=== PATIENT | male | born 1985 ===

== ENCOUNTER 2017-09-27 04:42 | Inpatient (IN) | payer OTHER ==
[2017-09-27] MEDS ORDERED: ASPIRIN PO ONE (05:26)
[2017-09-27 05:52] LABS: Basophils # (Auto) 0.1 K/mm3 (0.0-0.1); Basophils % (Auto) 2.8 % (0.0-1.8); Eosinophils # (Auto) 0.4 K/mm3 (0.0-0.4); Eosinophils % (Auto) 7.6 % (0.0-4.3); Hematocrit 43.3 % (35.5-45.6); Hemoglobin 14.3 gm/dl (11.8-15.2); Lymphocytes # (Auto) 1.4 K/mm3 (1.2-5.4); Lymphocytes % (Auto) 26.8 % (13.4-35.0); Mean Corpuscular HGB Conc 33 % (32-34); Mean Corpuscular Volume 78 fl (84-94); Monocytes # (Auto) 0.5 K/mm3 (0.0-0.8); Monocytes % (Auto) 8.7 % (0.0-7.3); Platelet Count 200 K/mm3 (140-440); Red Blood Count 5.58 M/mm3 (3.65-5.03); Red Cell Distribution Width 14.7 % (13.2-15.2)
[2017-09-27 06:05] LABS: BUN/Creatinine Ratio 10; Blood Urea Nitrogen 11 mg/dL (9-20); Calcium 9.4 mg/dL (8.4-10.2); Hemolysis Index 8
[2017-09-27 06:22] LABS: Mean Corpuscular Hemoglobin 26 pg (28-32)
[2017-09-27] MEDS ORDERED: NITRO-BID 2% TP ONE (10:50)
[2017-09-27] MEDS ORDERED: ASPIRIN ONE (10:53)
--- NOTE | 2017-09-27 10:56 | Emergency Department Report ---
HPI - General Chief Complaint: Chest Pain Time Seen by Provider: 09/27/17 10:39 - HPI HPI: Room 19 The patient is a 32-year-old male presenting with a chief complaint of chest pain and palpitations. The patient states last night he developed left-sided chest pressure associated with palpitations and shortness of breath. The patient states he did become diaphoretic during the episode but denies nausea/ vomiting. Patient denies previous episodes. The patient states he's never had a stress test or cardiac catheterization Location: Chest Duration: One hour Quality: Pressure Severity: Currently 0/10 Modifying factors: [see above] Context: [see above] Mode of transportation: [not driving] ED Past Medical Hx - Past Medical History Previous Medical History?: Yes Hx Diabetes: Yes Hx Asthma: Yes - Surgical History Past Surgical History?: No - Family History Family history: no significant - Social History Smoking Status: Current Every Day Smoker (cigars) Substance Use Type: None (denies illicit drug), Alcohol (occasional) - Medications Home Medications: Home Medications Medication Instructions Recorded Confirmed Last Taken Type Aspirin 325 mg PO DAILY 09/27/17 09/27/17 09/27/17 11:00 History metFORMIN [Glucophage] 500 mg PO BID 09/27/17 09/27/17 Unknown History ED Review of Systems ROS: Stated complaint: CHEST PAIN Other details as noted in HPI Constitutional: diaphoresis Respiratory: shortness of breath Cardiovascular: chest pain, palpitations Gastrointestinal: denies: nausea, vomiting Physical Exam - Physical Exam Vital Signs: Vital Signs 09/27/17 09/27/17 09/27/17 04:45 05:24 10:06 Temperature 98.3 F 98.3 F 98 F Pulse Rate 89 87 77 Respiratory 18 Rate Blood Pressure 134/92 134/72 Blood Pressure 127/70 [Left] O2 Sat by Pulse 97 98 Oximetry Physical Exam: GENERAL: The patient is well-developed well-nourished male sitting on stretcher not appearing to be in acute distress. [] HEENT: Normocephalic. Atraumatic. Extraocular motions are intact. Patient has moist mucous membranes. NECK: Supple. Trachea midline CHEST/LUNGS: Clear to auscultation. There is no respiratory distress noted. HEART/CARDIOVASCULAR: Regular. There is no tachycardia. There is no gallop rub or murmur. ABDOMEN: Abdomen is soft, nontender. Patient has normal bowel sounds. There is no abdominal distention. SKIN: There is no rash. There is no edema. There is no diaphoresis. NEURO: The patient is awake, alert, and oriented. The patient is cooperative. The patient has normal speech MUSCULOSKELETAL: There is no evidence of acute injury. ED Course Vital Signs 09/27/17 09/27/17 09/27/17 04:45 05:24 10:06 Temperature 98.3 F 98.3 F 98 F Pulse Rate 89 87 77 Respiratory 18 18 18 Rate Blood Pressure 134/92 134/72 Blood Pressure 127/70 [Left] O2 Sat by Pulse 97 98 Oximetry ED Medical Decision Making - Lab Data Result diagrams: 09/27/17 05:36 09/27/17 05:36 Laboratory Tests 09/27/17 09/27/17 09/27/17 05:36 05:36 08:15 WBC 5.3 RBC 5.58 H Hgb 14.3 Hct 43.3 MCV 78 L MCH 26 L MCHC 33 RDW 14.7 Plt Count 200 Lymph % (Auto) 26.8 [place] % (Auto) 8.7 H Eos % (Auto) 7.6 H Baso % (Auto) 2.8 H Lymph # 1.4 [place] # 0.5 Eos # 0.4 Baso # 0.1 Seg Neutrophils % 54.1 Seg Neutrophils # 2.9 Sodium 139 Potassium 4.2 Chloride 99.3 Carbon Dioxide 28 Anion Gap 16 BUN 11 Creatinine 1.1 Estimated GFR > 60 BUN/Creatinine Ratio 10 Glucose 110 H Calcium 9.4 Troponin T < 0.010 < 0.010 - EKG Data -: EKG Interpreted by Me EKG shows normal: sinus rhythm Rate: normal - EKG Data When compared to previous EKG there are: previous EKG unavailable Interpretation: nonspecific ST-T wave romina (jolley ST elevation) - Radiology Data Radiology results: image reviewed (chest x-ray) interpreted by me: Chest x-ray-no focal infiltrates, no pneumothorax - Differential Diagnosis ACS, pericarditis, dysrhythmia Critical care attestation.: If time is entered above; I have spent that time in minutes in the direct care of this critically ill patient, excluding procedure time. ED Disposition Clinical Impression: Chest pain, Palpitations Disposition: OP ADMIT IP TO THIS HOSP Is pt being admited?: Yes Does the pt Need Aspirin: Yes Condition: Fair Instructions: Chest Pain (ED) Referrals: PRIMARY CARE,MD [Primary Care Provider] - 3-5 Days Time of Disposition: 11:38 (hospitalist notified (Dr Stokes))
--- NOTE | 2017-09-27 11:30 | XRay Report ---
AP CHEST: HISTORY: chest pain AP view of the chest demonstrates a normal mediastinal and cardiac contour with clear lungs and normal bony and soft tissue structures. IMPRESSION: Unremarkable AP chest.
--- NOTE | 2017-09-27 21:14 | History and Physical Report ---
History of Present Illness Date of examination: 09/27/17 Date of admission: 09/27/17 11:37 Chief complaint: Cc Chest pain for 1 day History of present illness: [place]: The patient is a 32-year-old male presenting with a chief complaint of chest pain and palpitations. The patient states last night he developed left-sided chest pressure associated with palpitations and shortness of breath. The patient states he did become diaphoretic during the episode but denies nausea/ vomiting. Patient denies previous episodes. The patient states he's never had a stress test or cardiac catheterization. No exacerbating or relieving factors. Past Medical History Previous Medical History?: Yes Hx Diabetes: Yes Hx Asthma: Yes Surgical History Past Surgical History?: No Family History Family history: no significant Social History Smoking Status: Current Every Day Smoker (cigars) Substance Use Type: None (denies illicit drug), Alcohol (occasional) Medications Home Medications: Home Medications Medication Instructions Recorded Confirmed Last Taken Type Aspirin 325 mg PO DAILY 09/27/17 09/27/17 09/27/17 11:00 History metFORMIN [Glucophage] 500 mg PO BID 09/27/17 09/27/17 Unknown History Review of Systems ROS: Stated complaint: CHEST PAIN Other details as noted in HPI Constitutional: diaphoresis Respiratory: shortness of breath Cardiovascular: chest pain, palpitations Gastrointestinal: denies: nausea, vomiting Medications and Allergies Allergies Allergy/AdvReac Type Severity Reaction Status Date / Time Penicillins Allergy Dizziness Verified 09/27/17 05:26 Home Medications Medication Instructions Recorded Confirmed Last Taken Type Aspirin 325 mg PO DAILY 09/27/17 09/27/17 09/27/17 11:00 History metFORMIN [Glucophage] 500 mg PO BID 09/27/17 09/27/17 Unknown History Exam - Constitutional Vitals: Temp Pulse Resp BP Pulse Ox 98.2 F 76 18 117/73 99 09/27/17 16:23 09/27/17 18:50 09/27/17 18:26 09/27/17 16:23 09/27/17 16:23 General appearance: Present: no acute distress, well-nourished - EENT Eyes: Present: PERRL ENT: hearing intact, clear oral mucosa - Neck Neck: Present: supple, normal ROM - Respiratory Respiratory effort: normal Respiratory: bilateral: CTA - Cardiovascular Heart rate: 80 Rhythm: regular Heart Sounds: Present: S1 & S2. Absent: rub, click - Extremities Extremities: no ischemia, pulses intact, pulses symmetrical, No edema Peripheral Pulses: within normal limits - Abdominal General gastrointestinal: Present: soft, non-tender, non-distended, normal bowel sounds Male genitourinary: Present: normal - Rectal Rectal Exam: deferred - Integumentary Integumentary: Present: clear, warm, dry - Musculoskeletal Musculoskeletal: gait normal, strength equal bilaterally - Psychiatric Psychiatric: appropriate mood/affect, intact judgment & insight, memory intact, cooperative - Neurologic Neurologic: CNII-XII intact, moves all extremities, gait normal - Allied Health Allied health notes reviewed: nursing, case management Results - Labs CBC & Chem 7: 09/28/17 04:32 09/28/17 04:32 Labs: Laboratory Last Values WBC 5.3 K/mm3 (4.5-11.0) 09/27/17 05:36 RBC 5.58 M/mm3 (3.65-5.03) H 09/27/17 05:36 Hgb 14.3 gm/dl (11.8-15.2) 09/27/17 05:36 Hct 43.3 % (35.5-45.6) 09/27/17 05:36 MCV 78 fl (84-94) L 09/27/17 05:36 MCH 26 pg (28-32) L 09/27/17 05:36 MCHC 33 % (32-34) 09/27/17 05:36 RDW 14.7 % (13.2-15.2) 09/27/17 05:36 Plt Count 200 K/mm3 (140-440) 09/27/17 05:36 Lymph % (Auto) 26.8 % (13.4-35.0) 09/27/17 05:36 [place] % (Auto) 8.7 % (0.0-7.3) H 09/27/17 05:36 Eos % (Auto) 7.6 % (0.0-4.3) H 09/27/17 05:36 Baso % (Auto) 2.8 % (0.0-1.8) H 09/27/17 05:36 Lymph # 1.4 K/mm3 (1.2-5.4) 09/27/17 05:36 [place] # 0.5 K/mm3 (0.0-0.8) 09/27/17 05:36 Eos # 0.4 K/mm3 (0.0-0.4) 09/27/17 05:36 Baso # 0.1 K/mm3 (0.0-0.1) 09/27/17 05:36 Seg Neutrophils % 54.1 % (40.0-70.0) 09/27/17 05:36 Seg Neutrophils # 2.9 K/mm3 (1.8-7.7) 09/27/17 05:36 Sodium 139 mmol/L (137-145) 09/27/17 05:36 Potassium 4.2 mmol/L (3.6-5.0) 09/27/17 05:36 Chloride 99.3 mmol/L (98-107) 09/27/17 05:36 Carbon Dioxide 28 mmol/L (22-30) 09/27/17 05:36 Anion Gap 16 mmol/L 09/27/17 05:36 BUN 11 mg/dL (9-20) 09/27/17 05:36 Creatinine 1.1 mg/dL (0.8-1.5) 09/27/17 05:36 Estimated GFR > 60 ml/min 09/27/17 05:36 BUN/Creatinine Ratio 10 % 09/27/17 05:36 Glucose 110 mg/dL (75-100) H 09/27/17 05:36 Calcium 9.4 mg/dL (8.4-10.2) 09/27/17 05:36 Troponin T < 0.010 ng/mL (0.00-0.029) 09/27/17 11:19 - Imaging and Cardiology EKG: report reviewed Chest x-ray: report reviewed (NAF) Imaging and Cardiology: EKG Data EKG Interpreted by Al EKG shows normal: sinus rhythm Rate: normal EKG Data When compared to previous EKG there are no previous EKG's available Interpretation: nonspecific ST-T wave changes Assessment and Plan Advance Directives: Yes (Full code) VTE prophylaxis?: Chemical Plan of care discussed with patient/family: Yes - Patient Problems (1) Chest pain Current Visit: Yes Status: Acute Qualifiers: Chest pain type: unspecified Qualified Code(s): R07.9 - Chest pain, unspecified Plan to address problem: Chest pain w/u Lexiscan in Am Seroial troponins (2) T2DM (type 2 diabetes mellitus) Current Visit: Yes Status: Chronic Qualifiers: Diabetes mellitus detention insulin use: without termite exterminator use Plan to address problem: On Metformin Coverage for now Sheck A1c (3) DVT prophylaxis Current Visit: Yes Status: Acute Plan to address problem: on Hepatin/Lovenox
[2017-09-27] MEDS ORDERED: TYLENOL PO PRN (21:17)
[2017-09-27] MEDS ORDERED: AMBIEN PO PRN (21:17)
[2017-09-27] MEDS ORDERED: PERCOCET 5/325 PO PRN (21:17)
[2017-09-27] MEDS ORDERED: SODIUM CHLORIDE FLUSH SYRINGE 10 ML IV PRN (21:17)
[2017-09-27] MEDS ORDERED: ZOFRAN IV PRN (21:17)
[2017-09-27] MEDS: PEPCID PO SCH (23:13)
[2017-09-27] MEDS: SODIUM CHLORIDE FLUSH SYRINGE 10 ML IV SCH (23:13)
[2017-09-27] MEDS: ASPIRIN PO SCH (23:14)
[2017-09-27] MEDS: HumaLOG SUB-Q SCH (23:50)
[2017-09-28 06:31] LABS: Basophils # (Auto) 0.1 K/mm3 (0.0-0.1); Basophils % (Auto) 1.2 % (0.0-1.8); Eosinophils # (Auto) 0.3 K/mm3 (0.0-0.4); Eosinophils % (Auto) 4.8 % (0.0-4.3); Hematocrit 41.6 % (35.5-45.6); Hemoglobin 14.1 gm/dl (11.8-15.2); Lymphocytes # (Auto) 1.7 K/mm3 (1.2-5.4); Lymphocytes % (Auto) 25.9 % (13.4-35.0); Mean Corpuscular HGB Conc 34 % (32-34); Mean Corpuscular Hemoglobin 26 pg (28-32); Mean Corpuscular Volume 78 fl (84-94); Monocytes # (Auto) 0.5 K/mm3 (0.0-0.8); Monocytes % (Auto) 7.1 % (0.0-7.3); Platelet Count 207 K/mm3 (140-440); Red Blood Count 5.35 M/mm3 (3.65-5.03); Red Cell Distribution Width 14.6 % (13.2-15.2)
[2017-09-28 07:00] LABS: Alanine Aminotransferase 39 units/L (7-56); Albumin 3.9 g/dL (3.9-5); BUN/Creatinine Ratio 11; Blood Urea Nitrogen 13 mg/dL (9-20); Calcium 9.7 mg/dL (8.4-10.2); Hemolysis Index 3
[2017-09-28] MEDS: HumaLOG SUB-Q SCH ×3 (07:30→16:35)
[2017-09-28] MEDS ORDERED: LOVENOX SUB-Q SCH (10:00)
[2017-09-28 10:11] VITALS: BP 117/65
[2017-09-28] MEDS: ASPIRIN PO SCH (13:08)
[2017-09-28] MEDS: GLUCOPHAGE PO SCH ×2 (13:09→16:34)
[2017-09-28] MEDS: PEPCID PO SCH (13:09)
[2017-09-28] MEDS: SODIUM CHLORIDE FLUSH SYRINGE 10 ML IV SCH (13:12)
--- NOTE | 2017-09-28 13:55 | Treadmill Report ---
INDICATION FOR THE PROCEDURE: Chest pain. ORDERING PHYSICIAN: Alma Delia Stokes MD FINDINGS: There is no scintigraphic evidence of myocardial ischemia. There is evidence of a small fixed anterior wall defect. There is normal wall motion and wall thickening. The left ventricular ejection fraction is measured at 63%. CONCLUSION: 1. No scintigraphic evidence of myocardial ischemia. 2. This is a low-risk myocardial perfusion scan associated with 1-year cardiovascular event rate of less than 1%. JOB# [id number] YANNA/NTS
--- NOTE | 2017-09-28 16:11 | Discharge Summary ---
Providers - Providers Date of Admission: 09/27/17 11:37 Date of discharge: 09/28/17 Attending physician: ANTWAN BUCK cardiology for Chest pain and stress test Primary care physician: MUSIC ENGRAVER Hospitalization Reason for admission: chest pain Condition: Fair Pertinent studies: stress test Chest XR Procedures: None Hospital course: Mr Joya is a 32 y/o male with DM II who presented with Acute Chest pain. Ruled out for HI with negative cardiac enzymes. Subsequently had a Stress test which is reported as negative and patient is therefore being discharged home today, in stable condition with stable Vital signs. Counseled med compliance, and need for close PCP follow up More than 30 minutes spent of which more than 50% of the time was spent in patient counseling and coordination of care. Disposition: DC-01 TO HOME OR SELFCARE - Discharge Diagnoses (1) Atypical chest pain Status: Resolved (2) T2DM (type 2 diabetes mellitus) Status: Chronic Qualifiers: Diabetes mellitus terminal gauger insulin use: without care home use Core Measure Documentation - Palliative Care Palliative Care/ Comfort Measures: Not Applicable - Core Measures Any of the following diagnoses?: none - VTE Discharge Requirements Deep Vein Thrombosis/Pulmonary Embolism Present on Admission: No - Heart Failure Discharge Requirements SEB/ARB for LVSD if EF <40%: Not Applicable - Stroke Discharge Requirements Statin for LDL = or >70 mg/dl on DC: Not Applicable Exam - Constitutional Vitals: Temp Pulse Resp BP Pulse Ox 98.5 F 79 20 117/65 100 09/28/17 07:47 09/28/17 07:47 09/28/17 07:47 09/28/17 07:47 09/28/17 07:47 General appearance: Present: no acute distress, well-nourished, obese - EENT Eyes: Present: PERRL, EOM intact ENT: hearing intact, clear oral mucosa, dentition normal - Neck Neck: Present: supple, normal ROM - Respiratory Respiratory effort: normal Respiratory: bilateral: CTA, negative: rales, rhonchi - Cardiovascular Rhythm: regular Heart Sounds: Present: S1 & S2 - Extremities Extremities: no ischemia, pulses intact, pulses symmetrical, No edema Peripheral Pulses: within normal limits - Abdominal General gastrointestinal: Present: soft, non-tender, non-distended, normal bowel sounds - Rectal Rectal Exam: deferred - Integumentary Integumentary: Present: clear, warm, dry - Musculoskeletal Musculoskeletal: strength equal bilaterally - Psychiatric Psychiatric: appropriate mood/affect, intact judgment & insight, memory intact, cooperative - Neurologic Neurologic: CNII-XII intact, moves all extremities - Allied Health Allied health notes reviewed: nursing, social work Plan Activity: advance as tolerated Diet: low cholesterol, diabetic Special Instructions: record daily weights, record daily BP diary, other ( monitor BG closely) Follow up with: PRIMARY CARE,MD [Primary Care Provider] - 3-5 Days
== END 2017-09-28 18:20 | disposition home or self-care (01) | DRG 313 ==
LOC: ED 04:42 → 4A 11:37
PROVIDERS: ADMIT Internal Medicine; ATTEND Family Medicine
DX: R07.9 Chest pain, unspecified (principal); F17.210 Nicotine dependence, cigarettes, uncomplicated; Z88.0 Allergy status to penicillin; Z79.899 Other long term (current) drug therapy
CPT/HCPCS: 36415; 71045; 78452; 80048; 80053; 82962; 84484; 85025; 93005; 93010; 93017; A9502; J1650